=== PATIENT | female | born 1950 | race Asian ===

== ENCOUNTER 2018-08-25 08:37 | Day surgery (SDC) | payer MEDICARE, OTHER, MEDICAID ==
[2018-08-25] MEDS ORDERED: FENTAnyl 50 MCG/ML VIAL (10:18)
[2018-08-25] MEDS ORDERED: MIDAZOLAM 1 MG/ML 2 ML INJ ×2 (10:18→10:19)
== END 2018-08-25 11:41 | disposition home or self-care (01) ==
LOC: GIL 08:37
DX: Z12.11 Encounter for screening for malignant neoplasm of colon (principal); K64.8 Other hemorrhoids; I10 Essential (primary) hypertension
CPT/HCPCS: G0121